=== PATIENT | female | born 1950 | race Two or more races ===

== ENCOUNTER 2023-02-25 18:04 | Inpatient (IN) | payer OTHER ==
[~2023-02-25] VITALS: Ht 152.4 cm; Wt 54.4 kg
[2023-02-25] MEDS ORDERED: CARDIZEM120 MG PO (18:30)
[2023-02-25] MEDS ORDERED: AVALIDE 300-121 EACH PO (18:31)
== END 2023-03-01 14:07 | disposition home or self-care (01) | DRG 330 ==
LOC: ER 18:04 → MEDJ 02-26 11:25
PROVIDERS: Surgery; ADMIT Internal Medicine; ATTEND Internal Medicine
PROC: 0DTJ4ZZ Resection of Appendix, Percutaneous Endoscopic Approach (ICD-10-PCS; 2023-02-26)
PROC: 0DQE4ZZ Repair Large Intestine, Percutaneous Endoscopic Approach (ICD-10-PCS; 2023-02-26)
PROC: 0DBH4ZZ Excision of Cecum, Percutaneous Endoscopic Approach (ICD-10-PCS; principal; 2023-02-26 12:00)
DX: K35.32 Acute appendicitis with perforation, localized peritonitis, and gangrene, without abscess (principal); K91.71 Accidental puncture and laceration of a digestive system organ or structure during a digestive system procedure; K38.1 Appendicular concretions; K36 Other appendicitis; I10 Essential (primary) hypertension; I73.9 Peripheral vascular disease, unspecified; E78.5 Hyperlipidemia, unspecified